=== PATIENT | male | born 1955 | race Asian ===

== ENCOUNTER 2017-01-21 02:10 | Observation (INO) | payer MEDICARE, OTHER ==
[2017-01-21 02:20] VITALS: BMI 26.7
[2017-01-21] MEDS ORDERED: ASPIRIN 81 MG CHEWABLE TABLETS PO ONE (03:05)
--- NOTE | 2017-01-21 03:09 | PDOC ---
History of Present Illness - General History Source: Patient, Significant Other Exam Limitations: No Limitations <Cisco Mccullough - Last Filed: 01/21/17 03:45> <Adrienne Munoz - Last Filed: 01/21/17 06:36> - General Chief Complaint: Chest Pain Stated Complaint: CHEST PAIN - History of Present Illness Initial Comments: 01/21/17 03:45 The patient is a 61 year old Bots[place]an male, accompanied by family, with a significant past medical history of current 1.5 ppd smoking, HTN, and CAD (s/p NE in 2015 s/p 2 stents), who presents to the emergency department today for further evaluation of chest pain and subjective fever since yesterday. The patient states that he ran out of Enalapril yesterday and has been unable to refill his prescription because he is visiting from [place]. The patient states that he took aspirin to alleviate symptoms and his chest pain resolved. The patient endorses associated headache but denies leg swelling. (Cisco Mccullough) Past History <Cisco Mccullough - Last Filed: 01/21/17 03:45> - Past Medical History Cardiac Disorders: Yes HTN: Yes Hypercholesterolemia: Yes - Surgical History Cardiac Surgery: Yes (Stent placement 2014) - Immunization History Immunization Up to Date: No - Psycho/Social/Smoking Cessation Hx Anxiety: No Suicidal Ideation: No Smoking History: Current every day smoker Have you smoked in the past 12 months: Yes Number of Cigarettes Smoked Daily: 25 Information on smoking cessation initiated: No Hx Alcohol Use: No Drug/Substance Use Hx: No Substance Use Type: None <Adrienne Munoz - Last Filed: 01/21/17 06:36> - Past Medical History Allergies/Adverse Reactions: Allergies Allergy/AdvReac Type Severity Reaction Status Date / Time No Known Allergies Allergy Verified 01/21/17 02:20 Home Medications: Ambulatory Orders Aspirin [ASA -] 81 mg PO DAILY 01/21/17 Atorvastatin Ca [Lipitor] 20 mg PO HS 01/21/17 Enalapril Maleate [Vasotec -] 5 mg PO DAILY 01/21/17 Isosorbide Dinitrate [Isordil -] 20 mg PO DAILY 01/21/17 Lansoprazole [Prevacid -] 30 mg PO DAILY 01/21/17 Review of Systems - Review of Systems Able to Perform ROS?: Yes <Cisco Mccullough - Last Filed: 01/21/17 03:45> <Adrienne Munoz - Last Filed: 01/21/17 06:36> - Review of Systems Comments:: 01/21/17 03:45 GENERAL/CONSTITUTIONAL: (+) Fever. No chills. No weakness. HEAD, EYES, EARS, NOSE AND THROAT: No change in vision. No ear pain or discharge. No sore throat. GASTROINTESTINAL: No nausea, vomiting, diarrhea or constipation. GENITOURINARY: No dysuria, frequency, or change in urination. CARDIOVASCULAR: (+) chest pain. No shortness of breath. RESPIRATORY: No cough, wheezing, or hemoptysis. MUSCULOSKELETAL: No joint or muscle swelling or pain. No neck or back pain. SKIN: No rash NEUROLOGIC: (+) headache. No vertigo, loss of consciousness, or change in strength/sensation. ENDOCRINE: No increased thirst. No abnormal weight change. HEMATOLOGIC/LYMPHATIC: No anemia, easy bleeding, or history of blood clots. ALLERGIC/IMMUNOLOGIC: No hives or skin allergy. (Cisco Mccullough) *Physical Exam <Cisco Mccullough - Last Filed: 01/21/17 03:45> <Adrienne Munoz - Last Filed: 01/21/17 06:36> - Vital Signs Last Vital Signs Temp Pulse Resp BP Pulse Ox 98.1 F 62 18 129/74 100 01/21/17 06:03 01/21/17 06:03 01/21/17 06:03 01/21/17 06:03 01/21/17 06:03 - Physical Exam Comments: 01/21/17 03:46 GENERAL: Awake, alert, and fully oriented, in no acute distress HEAD: No signs of trauma EYES: PERRLA, EOMI, sclera anicteric, conjunctiva clear ENT: Auricles normal inspection, nares patent, Moist mucosa NECK: Normal ROM, supple, no lymphadenopathy, JVD, or masses LUNGS: Breath sounds equal, clear to auscultation bilaterally. No wheezes, and no crackles HEART: Regular rate and rhythm, normal S1 and S2, no murmurs, rubs or gallops ABDOMEN: Soft, nontender, normoactive bowel sounds. No guarding, no rebound. No masses EXTREMITIES: Normal range of motion, no edema. No clubbing or cyanosis. No cords, erythema, or tenderness. (+) Bilateral lower extremity varicose veins. NEUROLOGICAL: Normal speech SKIN: Warm, Dry, normal turgor, no rashes or lesions noted. (Cisco Mccullough) Heart Score/ECG Review - History History: Highly suspicious - Electrocardiogram EKG: Normal - Age Age: 45-65 - Risk Factors Risk Factors Heart Score: Yes Hx Hypercholesterolemia, Yes Hx Hypertension, Yes Smoking History Based on the list above the patient has:: >/=3 risk factors or Hx atherosclerotic disease - Troponin Troponin: </= normal limit - Score Heart Score - Total: 5 #1 ECG reviewed & interpreted by me at: 02:30 General ECG Interpretation: Sinus Rhythm, Normal Rate, Normal Intervals, No acute ischemic changes Compared to previous ECG there are: Previous ECG unavail <Adrienne Munoz - Last Filed: 01/21/17 06:36> ED Treatment Course - LABORATORY CBC & Chemistry Diagram: 01/21/17 03:18 01/21/17 03:18 <Cisco Mccullough - Last Filed: 01/21/17 03:45> - LABORATORY CBC & Chemistry Diagram: 01/21/17 03:18 01/21/17 03:18 <Adrienne Munoz - Last Filed: 01/21/17 06:36> - ADDITIONAL ORDERS Additional order review: Laboratory Results 01/21/17 01/21/17 01/21/17 03:18 03:18 03:18 INR 1.04 D-Dimer < 200 Sodium 141 Potassium 4.8 Chloride 107 Carbon Dioxide 30 Anion Gap 4 L BUN 10 Creatinine 0.9 Creat Clearance w eGFR > 60 Random Glucose 115 H Calcium 8.9 Magnesium 2.1 Total Bilirubin 0.6 AST 15 ALT 27 Alkaline Phosphatase 101 Creatine Kinase 78 Troponin I < 0.02 Total Protein 6.9 Albumin 3.7 01/21/17 03:18 RBC 4.98 MCV 87.7 MCHC 34.1 RDW 14.6 MPV 9.6 Neutrophils % 49.7 Lymphocytes % 40.2 H Monocytes % 8.0 Eosinophils % 1.1 Basophils % 1.0 - RADIOLOGY Radiology Studies Ordered: Category Date Time Status CHEST PA & LAT [RAD] Stat Radiology 01/21/17 03:05 Taken - Medications Given in the ED: ED Medications Discontinued Medications Generic Name Dose Route Start Last Admin Trade Name Carroll PRN Reason Stop Dose Admin Aspirin 162 mg 01/21/17 03:05 01/21/17 03:26 Asa - PO 01/21/17 03:06 162 mg ONCE ONE Administration Medical Decision Making <Cisco Mccullough - Last Filed: 01/21/17 03:45> <Adrienne Munoz - Last Filed: 01/21/17 06:36> - Medical Decision Making 01/21/17 03:07 61 yo Male here with h/o CAD HTN here with c/o chest pain. pt is czech speaking, visiting from [place]. pt states pain started this evening. also c/o headche and felt feverish. no cough no sob. no radiation. had stents 2 years ago, did feel similar to sxs prior to NE> pt states ran out of enalapril yesterday. 1 ppd smoker. no mod factors. on exam awake alert lungs clear heartRRR no mrg. abd soft NT ND. ext wwp. varicose veins. no leg edema. no calf tenderness. plan: r/o acs infection pe. plan high risk acs, will asa tele cxr labs trop d dimer. demetraley admit to tele r/o pe. 01/21/17 04:58 pt cxr unremarkable. ekg no acute st elevation or depression. labs normal. pt refusing admission for serial enzymes and stress. family at bedside. aware of risk of leaving AMA including NE and . 01/21/17 05:32 after further discussion with patient and family. pt is agreeable to stay for further testing. (Adrienne Munoz) *DC/Admit/Observation/Transfer <Cisco Mccullough - Last Filed: 01/21/17 03:45> - Discharge Dispostion Admit: Yes <Adrienne Munoz - Last Filed: 01/21/17 06:36> Diagnosis at time of Disposition: Chest pain - Discharge Dispostion Condition at time of disposition: Fair - Referrals Referrals: STAFF,NOT ON [Primary Care Provider] - - Patient Instructions Printed Discharge Instructions: DI for Chest Pain Additional Instructions: understand you are leaving against medical advice. return for recurrent pain or any concerns. you should follow up [facility] call dr Arias to schedule an appointment - Attestations Scribe Attestion: 01/21/17 03:46 Documentation prepared by Cisco Mccullough, acting as medical charge entry specialist for Adrienne Munoz MD. (Cisco Mccullough)
[2017-01-21] MEDS ORDERED: ASPIRIN 81 MG CHEWABLE TABLETS ONE (03:13)
[2017-01-21 03:28] LABS: EOSINOPHIL 1.1 % (0-4.5); MCH 29.9 pg (25.7-33.7); MCHC 34.1 g/dl (32.0-35.9); MEAN CELL VOLUME 87.7 fl (80-96); MEAN PLT VOLUME 9.6 fl (7.5-11.1); NEUTROPHILS 49.7 % (42.8-82.8); PLATELET COUNT 222 K/MM3 (134-434); RDW 14.6 % (11.9-15.9); WHITE BLOOD COUNT 9.2 K/mm3 (4.0-10.0)
[2017-01-21 03:39] LABS: INR 1.04 (0.82-1.09); PROTHROMBIN TIME (PATIENT) 11.4 SEC (9.98-11.88)
[2017-01-21 04:02] LABS: ALBUMIN 3.7 g/dl (3.4-5.0); ANION GAP 4 (8-16); BILIRUBIN,TOTAL 0.6 mg/dL (0.2-1.0); CALCIUM 8.9 mg/dL (8.5-10.1); CO2 30 mmol/L (21-32); CREATININE 0.9 mg/dL (0.7-1.3); GLUCOSE,RANDOM 115 mg/dL (74-106); MAGNESIUM 2.1 mg/dL (1.8-2.4); SGOT/AST 15 U/L (15-37); SGPT/ALT 27 U/L (12-78); TOT PROT 6.9 g/dl (6.4-8.2)
[2017-01-21 04:04] LABS: ALK PHOS 101 U/L (45-117); TROPONIN I < 0.02 ng/ml (0.00-0.05)
--- NOTE | 2017-01-21 09:50 | HP ---
CHIEF COMPLAINT: PCP: HISTORY OF PRESENT ILLNESS: 61 yo M with h/o GERD, HTN, HLD, CVA, and CAD s/p 2 stents in 2015 brought in by family member to the ED due to chest pain. Patient is Mongolian speaking only and a poor historian. [employer] service via [employer] #[id number] was used. Patient stated that the chest pain came on last night after he broke fast and ate dinner. It's substernal, 10/10, lasted 1 minute then turned vague for 1 hour, pressure like, radiates to his back, no alleviating or aggravating factors, not associated with position or breathing. He said he had similar pain after the stents were placed in his heart and it usually occurs at night. He denies exertional chest pain or shortness of breath, n/v, syncope, fever, chills, urinary or bowel symptoms. ER course was notable for: (1) Received asa 162mg x 1 dose (2) Chest pain free since admission (3) Recent Travel: Recently visited [place] PAST MEDICAL HISTORY: GERD, HTN, HLD, CVA, and CAD s/p 2 stents in 2014 at [facility] in [place] PAST SURGICAL HISTORY: Appendectomy Social History: Smoking: > 40 pack years; current daily smoker Alcohol: Denies Drugs: Denies Family History: Non-contributory Allergies No Known Allergies Allergy (Verified 01/21/17 02:20) HOME MEDICATIONS: Home Medications Medication Instructions Recorded Aspirin [ASA -] 81 mg PO DAILY 01/21/17 Atorvastatin Ca [Lipitor] 20 mg PO HS 01/21/17 Enalapril Maleate [Vasotec -] 5 mg PO DAILY 01/21/17 Isosorbide Dinitrate [Isordil -] 20 mg PO DAILY 01/21/17 Lansoprazole [Prevacid -] 30 mg PO DAILY 01/21/17 REVIEW OF SYSTEMS CONSTITUTIONAL: Absent: fever, chills, diaphoresis, generalized weakness, malaise, loss of appetite, weight change HEENT: Absent: rhinorrhea, nasal congestion, throat pain, throat swelling, difficulty swallowing, mouth swelling, ear pain, eye pain, visual changes CARDIOVASCULAR: Absent: chest pain, syncope, palpitations, irregular heart rate, lightheadedness , peripheral edema RESPIRATORY: Absent: cough, shortness of breath, dyspnea with exertion, orthopnea, wheezing, stridor, hemoptysis GASTROINTESTINAL: abdominal pain Absent: abdominal distension, nausea, vomiting, diarrhea, constipation, melena, hematochezia GENITOURINARY: Absent: dysuria, frequency, urgency, hesitancy, hematuria, flank pain, genital pain MUSCULOSKELETAL: Absent: myalgia, arthralgia, joint swelling, back pain, neck pain SKIN: Absent: rash, itching, pallor HEMATOLOGIC/IMMUNOLOGIC: Absent: easy bleeding, easy bruising, lymphadenopathy, frequent infections ENDOCRINE: Absent: unexplained weight gain, unexplained weight loss, heat intolerance, cold intolerance NEUROLOGIC: Absent: headache, focal weakness or paresthesias, dizziness, unsteady gait, seizure, mental status changes, bladder or bowel incontinence PSYCHIATRIC: Absent: anxiety, depression, suicidal or homicidal ideation, hallucinations. PHYSICAL EXAMINATION Last Vital Signs Temp Pulse Resp BP Pulse Ox 97.8 F 52 L 16 132/67 95 01/21/17 12:03 01/21/17 12:49 01/21/17 12:49 01/21/17 12:49 01/21/17 12:49 GENERAL: AAO x 3, in no cardiopulmonary distress HEAD: Normal with no signs of trauma. EYES:PERRLA, sclera anicteric, conjunctiva clear. No lid lag. ENT: oropharynx clear without exudates. Moist mucous membranes. NECK: No bruits or JVD LUNGS: CTAB HEART: RRR, normal S1 and S2 without murmur, rub or gallop. ABDOMEN: Soft, nontender, not distended, normoactive bowel sounds, no guarding, no rebound, no masses. No bruit. MUSCULOSKELETAL: Normal range of motion at all joints. No bony deformities or tenderness. No CVA tenderness. EXTREMITIES: 2+ pulses, warm, well-perfused. No calf tenderness. No peripheral edema. NEUROLOGICAL: Cranial nerves II-XII intact. Normal speech. PSYCHIATRIC: Cooperative. Good eye contact. Appropriate mood and affect. SKIN: Warm, dry, normal turgor, no rashes or lesions noted, normal capillary refill. CBCD WBC 9.2 K/mm3 (4.0-10.0) 01/21/17 03:18 RBC 4.98 M/mm3 (4.00-5.60) 01/21/17 03:18 Hgb 14.9 GM/dL (11.7-16.9) 01/21/17 03:18 Hct 43.7 % (35.4-49) 01/21/17 03:18 MCV 87.7 fl (80-96) 01/21/17 03:18 MCHC 34.1 g/dl (32.0-35.9) 01/21/17 03:18 RDW 14.6 % (11.9-15.9) 01/21/17 03:18 Plt Count 222 K/MM3 (134-434) 01/21/17 03:18 MPV 9.6 fl (7.5-11.1) 01/21/17 03:18 CMP Sodium 141 mmol/L (136-145) 01/21/17 03:18 Potassium 4.8 mmol/L (3.5-5.1) 01/21/17 03:18 Chloride 107 mmol/L (98-107) 01/21/17 03:18 Carbon Dioxide 30 mmol/L (21-32) 01/21/17 03:18 Anion Gap 4 (8-16) L 01/21/17 03:18 BUN 10 mg/dL (7-18) 01/21/17 03:18 Creatinine 0.9 mg/dL (0.7-1.3) 01/21/17 03:18 Creat Clearance w eGFR > 60 (>60) 01/21/17 03:18 Calcium 8.9 mg/dL (8.5-10.1) 01/21/17 03:18 Total Bilirubin 0.6 mg/dL (0.2-1.0) 01/21/17 03:18 AST 15 U/L (15-37) 01/21/17 03:18 ALT 27 U/L (12-78) 01/21/17 03:18 Alkaline Phosphatase 101 U/L (45-117) 01/21/17 03:18 Total Protein 6.9 g/dl (6.4-8.2) 01/21/17 03:18 Albumin 3.7 g/dl (3.4-5.0) 01/21/17 03:18 IMAGING EKG on 01/21: NSR, incomplete RBBB, L anterior fascicular block ASSESSMENT/PLAN: 61 yo M with h/o HTN, HLD, CVA, and CAD s/p 2 stents admitted to observation for chest pain. Atypical chest pain, r/o ACS - Heart score = 5 - Unstable angina vs. GERD - Trop -ve x 2 - Cont. asa and lipitor - ECHO - Cardiology consult HTN - Cont. isodril and vasotec HLD - Cont. lipitor GERD - Cont. protonix FEN - no IVF indicated - Normal lytes - Na controlled diet Prophylaxis - DVT: heparin SQ - GI: ppi Dispo - Observation - Awaiting cardiology consult Visit type - Emergency Visit Emergency Visit: Yes ED Registration Date: 01/21/17 Care time: The patient presented to the Emergency Department on the above date and was hospitalized for further evaluation of their emergent condition. - New Patient This patient is new to me today: Yes Date on this admission: 01/21/17 - Critical Care Critical Care patient: No
[2017-01-21] MEDS ORDERED: ACETAMINOPHEN 325 MG TABLET (FP) PO PRN (11:12)
[2017-01-21] MEDS ORDERED: ISOSORBIDE DINITRATE 20 MG TABLET (FP) PO SCH ×2 (11:45→20:35)
[2017-01-21] MEDS ORDERED: PANTOPRAZOLE 40 MG TABLET (FP) PO SCH ×2 (11:45→20:45)
[2017-01-21] MEDS: ENALAPRIL MALEATE 5 MG TABLET (FP) PO SCH ×2 (12:00)
[2017-01-21 12:12] LABS: TROPONIN I < 0.02 ng/ml (0.00-0.05)
[2017-01-21] MEDS ORDERED: HEPARIN NA (PORCINE) 5,000 UNITS/ML 1ML VIAL SQ SCH (14:00)
--- NOTE | 2017-01-21 14:26 | PN ---
Teaching Attending Note Name of Resident: Alvin Verduzco ATTENDING PHYSICIAN STATEMENT I saw and evaluated the patient. I reviewed the resident's note and discussed the case with the resident. I agree with the resident's findings and plan as documented. SUBJECTIVE: This is a 61 year old man with a history of CAD, AR, stents, HTN, GERD, CVA who presents to the ER complaining of chest pain which started last night after eating dinner. He describes it as substernal pressure radiating to his back. Symptoms are similar to when he had AR. He is a smoker. OBJECTIVE: Vital Signs Period Temp Pulse Resp BP Sys/Hinojosa Pulse Ox Last 24 Hr 97.8 F-98.1 F 52-69 16-18 126-139/67-76 95-100 HEART: S1S2, RRR LUNGS: Clear ABDOMEN: Soft, non-tender, non-distended, normal BS EXTREMITIES: No edema ASSESSMENT AND PLAN: This is a 61 year old man with a history of CAD, AR, stents, HTN, GERD, CVA who presented to the ER with substernal chest pain radiating to his back which started last night after eating dinner. 1. Chest pain - Patient has CAD with history of AR and stents - Observe on telemetry - Serial troponins - Continue aspirin, Lipitor, Isordil, Prevacid - Echocardiogram - Cardiology consult 2. CAD, history of AR and stents - Continue aspirin, Lipitor, Isordil 3. Hypertension - Continue Vasotec 4. GERD - Continue Prevacid 5. History of CVA - Continue aspirin, Lipitor
[2017-01-21 19:00] VITALS: TEMP 98
[2017-01-21] MEDS ORDERED: ENALAPRIL MALEATE 5 MG TABLET (FP) PO SCH (20:45)
[2017-01-21] MEDS ORDERED: ATORVASTATIN CA 20 MG TABLET (FP) PO SCH (22:00)
[2017-01-21 22:57] VITALS: BP 129/73; PULSE 71
--- NOTE | 2017-01-22 01:06 | HOSP ---
Subjective - Review of Symptoms Events since last encounter: Pt wants to sign out AMA as he would like to celebrate Blanca carmona with family. I have explained to him and his son that we highly recommend he stay to rule out any cardiac abnormalities and the risks of leaving include but are not limited to heart attack, change in heart rhythm, and even . Pt and son understand risks and would still like to sign out AMA. Pt signed out AMA. Physical Examination Vital Signs: Vital Signs Temperature 98 F 01/21/17 19:00 Pulse Rate 71 01/21/17 22:56 Respiratory Rate 18 01/21/17 22:56 Blood Pressure 129/73 01/21/17 22:56 O2 Sat by Pulse Oximetry (%) 97 01/21/17 22:56 Visit type - Emergency Visit Emergency Visit: Yes ED Registration Date: 01/21/17 Care time: The patient presented to the Emergency Department on the above date and was hospitalized for further evaluation of their emergent condition. - New Patient This patient is new to me today: Yes Date on this admission: 01/22/17 - Critical Care Critical Care patient: No
[2017-01-22] MEDS ORDERED: ASPIRIN 81 MG CHEWABLE TABLETS PO SCH (10:00)
--- NOTE | 2017-01-22 21:39 | EKG ---
Test Reason : Blood Pressure : / mmHG Vent. Rate : 062 BPM Atrial Rate : 062 BPM P-R Int : 186 ms QRS Dur : 112 ms QT Int : 416 ms P-R-T Axes : 057 -54 055 degrees QTc Int : 422 ms NORMAL SINUS RHYTHM INCOMPLETE RIGHT BUNDLE BRANCH BLOCK LEFT ANTERIOR FASCICULAR BLOCK MINIMAL VOLTAGE CRITERIA FOR LVH, MAY BE NORMAL VARIANT ABNORMAL ECG NO PREVIOUS ECGS AVAILABLE Confirmed by JUSTICE OSEGUERA, FRAN ([id number]) on 01/22/2017 9:39:28 PM Referred By: Confirmed By:FRAN RENDON MD
== END 2017-01-22 00:26 | disposition left against medical advice (07) ==
LOC: JER 02:10 → JERBED 07:06
PROVIDERS: ADMIT Internal Medicine; ATTEND Internal Medicine
PROC: 3E013GC Introduction of Other Therapeutic Substance into Subcutaneous Tissue, Percutaneous Approach (ICD-10-PCS; principal; 2017-01-21)
DX: R07.9 Chest pain, unspecified (principal); I10 Essential (primary) hypertension; I25.10 Atherosclerotic heart disease of native coronary artery without angina pectoris; I25.2 Old myocardial infarction; Z95.5 Presence of coronary angioplasty implant and graft; F17.210 Nicotine dependence, cigarettes, uncomplicated; Z79.82 Long term (current) use of aspirin; K21.9 Gastro-esophageal reflux disease without esophagitis; E78.5 Hyperlipidemia, unspecified
CPT/HCPCS: 36415; 71020-TC; 80053; 82550; 83735; 84484; 85025; 85379; 85610; 93005; 93010; 99285-25; G0378; J1644